=== PATIENT | male | born 1995 | race Caucasian/White ===

== ENCOUNTER 2025-02-19 12:19 | Emergency (ER) | payer BC, SELFPAY ==
[2025-02-19 12:21] VITALS: BP 142/91; BMI 20.1
--- NOTE | 2025-02-19 13:14 | ED.GENMED ---
History of Present Illness
General
Chief Complaint: Crisis Evaluation
Source: patient and family (Mother)
Exam Limitations: none
Time Seen by Provider: 02/19/25 12:22
Nursing documentation reviewed up to this point in time: agreed with
History of Present Illness
History of Present Illness:
29-year-old male with no reported chronic medical issues presents to the emergency department on a 302�302 filed by his mother (who is a physician) due to hannah, command hallucinations�apparently hearing voices commanding him to hurt himself.
Patient does not carry a formal diagnosis of bipolar yet but recently saw psychiatry (Dr. Marshall) and bipolar is the presumptive diagnosis. Patient has been having issues with sleep�he says that for the past 2-1/2 weeks at least he has essentially
not slept at all. He says that he will sleep for an hour or 2 at a time before waking up. He describes his mood as 'extremely anxious.' He says that he is very stressed and he attributes this to lack of sleep. He tells me that he has not been
having hallucinations. He denies feeling suicidal or having homicidal ideation. He denies any cutting but has been picking at his nails and skin. He says that physically he feels fatigued but otherwise well. He denies alcohol use�'I hate
alcohol.' He does admit to occasional marijuana use (vapes) also reports nicotine use and apparently has a history of kratom use as well.
Past History
Past History
ED Past Medical History: None
ED Past Surgical History: None
Social History
Living: with family
Review of Systems
Review of Systems
All Other Systems: ROS reviewed and negative except as documented in HPI and ROS
Constitutional: Reports fatigue
Psychiatric: Reports anxiety, hallucinations (Reportedly having hallucinations but patient denies) and other (Insomnia); Denies depression or suicidal
Phy Exam
Physical Exam
Physical Exam:
General: Awake, alert, somewhat disheveled but not in acute distress
Head: Normocephalic, atraumatic
Eyes: Conjunctiva normal
Throat: Airway intact
Neck: Trachea midline, supple without meningismus
Lungs: Clear to auscultation bilaterally, no wheezing, rales, rhonchi
Heart: Tachycardia with regular rhythm, no murmurs, gallops, or rubs
Abd: Soft, non distended, nontender
Neuro: No gross deficits
Extremities: No edema in extremities, equal pulses in all extremities
Psych: 'Anxious' mood, flat affect; he does seem to be responding to internal stimuli during my assessment
Scores
Heart Failure Risk
Heart Failure Risk Score: Not Applicable
Heart Score for Chest Pain Patients
STEMI patient?: Not applicable
Withdrawal Assessment of Alcohol
Withdrawal Assessment Completed?: Not applicable
Course
Orders/Labs/Results
Orders:
Orders
02/19/25 12:23
PSYCHIATRY CONSULT Urgent
Consulting Provider: Tc Muñoz
Was physician already notified: Yes
Crisis Consult Routine
Reason for Consult: 302--command hallucinations/hannah
Drug Screen, Urine [Urine Drug Abuse Screen] Urgent
Date Specimen was Collected: 02/19/25
Time Specimen was Collected: 14:55
02/19/25 13:21
ED Special Safety Observation ONCE
Observation level: One to Two
02/19/25 13:40
Quetiapine Fumarate [Seroquel] 25 mg PO Q6HPRN PRN
02/19/25 14:41
Acetaminophen Urgent
Alcohol Urgent
Complete Blood Count/With Diff Urgent
Comprehensive Metabolic Panel Urgent
Salicylate Urgent
02/19/25 14:45
Acetaminophen [Tylenol] 650 mg .ROUTE .STK-MED ONE
02/19/25 14:48
Acetaminophen [Tylenol] 650 mg PO NOW STA
Abnormal Lab Results
02/19/25
14:41
RBC 4.52 L 10^6/uL
(4.70-6.10)
Absolute Neuts (auto) 8.8 H 10^3/uL
(1.4-6.5)
Absolute Lymphs (auto) 0.7 L 10^3/uL
(1.2-3.4)
Absolute Monos (auto) 1.1 H 10^3/uL
(0.1-0.6)
Neutrophils % 82.6 H %
(42.2-75.2)
Lymphocytes % 6.5 L %
(20.5-51.1)
Monocytes % 10.5 H %
(1.7-9.3)
BUN < 2 L mg/dl
(9-20)
Creatinine 0.6 L mg/dL
(0.7-1.3)
Glucose 132 H mg/dl
(70-99)
Calcium 10.4 H mg/dl
(8.4-10.2)
Salicylates < 1.0 L mg/dl
(2.0-20.0)
Acetaminophen < 10 L ug/ml
(10-30)
02/19/25 14:41
02/19/25 14:41
Vital Signs
Initial and Last Documented VS:
Initial Vital Signs
Temp Pulse Resp BP Pulse Ox
36.6 C 106 15 142/91 97
02/19/25 12:21 02/19/25 12:21 02/19/25 12:21 02/19/25 12:21 02/19/25 12:21
Last Documented Vital Signs
Temp Pulse Resp BP Pulse Ox
36.6 C 106 15 142/91 97
02/19/25 12:21 02/19/25 12:21 02/19/25 12:21 02/19/25 12:21 02/19/25 12:21
MDM/Problems Addressed
Differential Diagnosis Includes:
Hannah, psychosis, drug use
MDM/Problems Addressed:
29-year-old male presents for hannah and reportedly command hallucinations. There are 2 filed by his mother who is a physician. Patient denies hallucinations, suicidality, homicidal ideation. Feels fatigued and anxious from lack of sleep but
denies any other acute complaints. Vitals and exam as above. Will monitor on one-to-one observation. Case discussed with crisis team and psychiatry for assessment.
Patient evaluated by crisis team and psychiatry. Fortunately bed search was expeditious and [facility]iana [facility] is reviewing case for acceptance. Continue to monitor.
Patient accepted at [facility] monitor pending transport.
*Pulse Oximetry
Patient hypoxic: no
*Critical Care Note
Total Time (30-74mins, 75-104mins- exclusive of procedures): Not Applicable
Data Reviewed
Source: patient and family
Patient Management
Discussion with other providers: Clinical Staff Anesthesiologist (Discussed with psychiatry) and Other (Discussed with crisis staff)
ED Attending Note
-
Portions of this chart may have been created with voice recognition software.� Occasional wrong word or��sound alike� substitutions may have occurred due to the inherent limitations of voice recognition software.
Discharge Plan
Departure
Patient Disposition: Psych Facility
Date of Disposition: 02/19/25
Time of Disposition: 13:21
Discharge Problem:
Hannah
Prescriptions:
No Action
oxycodone-acetaminophen 5 MG/325 MG tablet
1 tab PO Q4HPRN PRN (Reason: moderate to severe pain) Qty: 10 0RF
amoxicillin-pot clavulanate 1 TABLET tablet
1 tab PO Q12 Qty: 20 0RF
Rx Instructions:
take with probiotic
ciprofloxacin-dexamethasone 7.5 ML drops,suspension
7.5 ml OT BID Qty: 1 0RF
Referrals:
NONE,* [Family Provider] -
Interventions
Interventions:
*Risk Screen - Suicide Last Done: 02/19/25 12:21
*General Assessment Last Done: 02/19/25 12:21
*Neglect/Abuse Screening Last Done: 02/19/25 12:21
*ED- Fall Risk Assessment Last Done: 02/19/25 12:21
*ED COVID-19 Vaccine History Last Done: 02/19/25 12:21
ED-Psychological Assessment Last Done: 02/19/25 12:31
Discharge Date and Time
Print Language: CYMRO
--- NOTE | 2025-02-19 13:41 | CON.MD ---
Consultation - Medical
-
patient seen chart reviewed. patient is a 29 year old male whose mom filed a 302 petition patient does have hx of psychosis and was hosp about two years ago . the scenario was much the same w preoccupation with [facility]. he is hitting himself and
picking at nails to point of bleeding. he is not eating. he is showering 20 x daily to put out the fires in his soul. he has lost about 15+ lbs. he recently stopped olanzapine. dr lawler saw him and ? psychosis. he started patient on seroquel mom
did not know dose. patient denies hallucinations but mom feels he is hearing things. he has told mom god told him he should take his life. vinayak denies all of the above but appears internally preoccupied.
past psych hx one hosp. took olanzapine for about a year and psychosis improved but patient still very withdrawan and dysfunctional
medical generally healthy
substance abuse uses a lot of 'supplements' says recently not so much. was using kratom at time of last psychotic episode. this time he says he has not used anything but cbc vape in last week . does say drinks 'some etoh
fh m uncle bipolar. other cousins dx bipolar
social had own place but now w mom and stepdad. has a twin sis and older sister. finished hs. 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 oves being out doors hiking
mse alert ox3 but withdrawn constricted affect mood dysphoric but denies all psych sx aver intell insight judgment lacking
dx bipolar unspec w psychosis vs schizoaffective vs drug induced psychosis
plan uphold 302 crisis searching for psych bed. seroquel prn agitation anxiety
[2025-02-19] MEDS: TYLENOL 650 MG PO (14:48)
[2025-02-19] MEDS: SEROQUEL 25 MG PO (14:49)
[2025-02-19 14:51] LABS: % Basophils 0.2 % (0-2); % Immature Granulocytes 0.2 % (0-0.5); % Lymphocytes 6.5 % (20.5-51.1); % Monocytes 10.5 % (1.7-9.3); % Neutrophils 82.6 % (42.2-75.2); Absolute Lymphocytes 0.7 10^3/uL (1.2-3.4); Absolute Monocytes 1.1 10^3/uL (0.1-0.6); Absolute Neutrophils 8.8 10^3/uL (1.4-6.5); Hematocrit 39.4 % (39.0-52.0); Hemoglobin 13.8 g/dL (13.0-18.0); Mean Corpuscular Hgb 30.5 pg (27.0-31.0); Mean Corpuscular Volume 87.2 fL (80.0-94.0); Mean Platelet Volume 9.5 fL (7.4-10.4); Nucleated Red Blood Cells % 0 % (-); Platelet Count 330 10^3/uL (130-400); Red Blood Cell Count 4.52 10^6/uL (4.70-6.10); Red Cell Dist. Width 12.2 % (11.5-14.5); White Blood Cell Count 10.7 10^3/uL (4.8-10.8)
[2025-02-19 15:18] LABS: ALT (SGPT) 13 U/L (0-50); AST (SGOT) 17 U/L (17-59); Acetaminophen < 10 ug/ml (10-30); Albumin 4.7 g/dl (3.5-5.0); Alkaline Phosphatase 54 U/L (38-126); Blood Urea Nitrogen < 2 mg/dl (9-20); Calcium 10.4 mg/dl (8.4-10.2); Carbon Dioxide 28 mmol/L (22-30); Chloride 104 mmol/L (98-107); Estimated Creatinine Clearance > 125 ml/min; Glucose 132 mg/dl (70-99); Salicylate < 1.0 mg/dl (2.0-20.0); Sodium 140 mmol/L (135-145); Total Bilirubin 0.6 mg/dl (0.2-1.3); Total Protein 7.6 g/dl (6.3-8.2); eGFR > 60.00
[2025-02-19 15:19] LABS: Alcohol None Detected
[2025-02-19 15:59] LABS: Amphetamines Negative (Negative); Barbiturates Negative (Negative); Benzodiazepines Negative (Negative); Buprenorphine Negative (Negative); Cocaine Negative (Negative); Marijuana Positive (Negative); Methadone Negative (Negative); Methamphetamines Negative (Negative); Opiates Negative (Negative); Phencyclidine Negative (Negative); Tricyclic Antidepressants Negative (Negative)
[2025-02-19] MEDS: BACTROBAN 2% OINTMENT 1 APPLIC TOPICAL (20:18)
== END 2025-02-19 21:10 ==
LOC: EMR 12:19
PROVIDERS: CONSULT PHYSICIAN Psychiatry & Neurology Psychiatry; EMERGENCY PHYSICIAN Emergency Medicine
DX: F30.9 Manic episode, unspecified (principal)
CPT/HCPCS: 99285; 80053; 80143; 80179; 80306; 82077; 85025